=== PATIENT | male | born 1965 | race American Indian/Alaskan Native ===

== ENCOUNTER 2017-07-15 10:22 | Emergency (ER) | payer BC ==
--- NOTE | 2017-07-15 10:32 | EDM.PDOC ---
ED HPI GENERAL MEDICAL PROBLEM - General Chief Complaint: General Stated Complaint: MOUTH PAIN Time Seen by Provider: 07/15/17 10:31 Source of Information: Reports: Patient History Limitations: Reports: No Limitations - History of Present Illness INITIAL COMMENTS - FREE TEXT/NARRATIVE: Patient has been having pain and swelling to his lower left tooth the last 2 days. He did see the dentist this morning and he states that the dentist will not pull the tooth because it is infected. He denies any fever, chills over the last few days. Pain rated a 10/10. Discomfort with chewing, sensitive to hot and cold. Onset: Gradual Quality: Reports: Ache, Sharp Severity: Moderate Worsens with: Reports: Eating Left Lower Tooth/Teeth Pain Score (Numeric/FACES): 10 - Related Data Allergies Allergy/AdvReac Type Severity Reaction Status Date / Time niacin Allergy Itching Verified 07/15/17 11:07 Home Meds: Home Meds . [Unable to Verify Home Med List] 07/15/17 [History] ED ROS GENERAL - Review of Systems Review Of Systems: See Below Constitutional: Reports: No Symptoms HEENT: Reports: Other (left lower tooth pain) Respiratory: Reports: No Symptoms Cardiovascular: Reports: No Symptoms Endocrine: Reports: No Symptoms GI/Abdominal: Reports: No Symptoms : Reports: No Symptoms Musculoskeletal: Reports: No Symptoms Skin: Reports: No Symptoms Neurological: Reports: No Symptoms Psychiatric: Reports: No Symptoms Hematologic/Lymphatic: Reports: No Symptoms Immunologic: Reports: No Symptoms ED EXAM, GENERAL - Physical Exam Exam: See Below Exam Limited By: No Limitations General Appearance: Alert, WD/WN, Mild Distress Eye Exam: Bilateral Eye: EOMI, PERRL Throat/Mouth: Other (many teeth in various states of decay. Left lower molar has cracking, swelling is observed, as well as pain with palpation). No: Normal Teeth Head: Atraumatic, Facial Swelling Neck: Normal Inspection, Supple, Non-Tender, Full Range of Motion Respiratory/Chest: No Respiratory Distress Cardiovascular: Normal Peripheral Pulses, Regular Rate, Rhythm, No Edema Neurological: Alert, Oriented, CN II-XII Intact, Normal Cognition Psychiatric: Normal Affect, Normal Mood Skin Exam: Warm, Dry Lymphatic: No Adenopathy Course - Vital Signs Last Recorded V/S: Last Vital Signs Temp 36.1 C 07/15/17 10:25 Pulse 63 07/15/17 10:25 Resp 20 07/15/17 10:25 BP 130/78 07/15/17 10:25 Pulse Ox - Orders/Labs/Meds Meds: Medications Discontinued Medications Generic Name Dose Route Start Last Admin Trade Name Victorino PRN Reason Stop Dose Admin Hydrocodone Bitart/Acetaminophen 1 tab 07/15/17 10:57 07/15/17 11:25 [place] 325-10 Mg PO 07/15/17 10:58 1 tab ONETIME ONE Administration Ceftriaxone Sodium 2 gm/ 0 gm 07/15/17 10:56 07/15/17 11:24 Lidocaine HCl 4.2 ml IM 07/15/17 10:57 2 inj ONETIME ONE Administration - Re-Assessments/Exams Free Text/Narrative Re-Assessment/Exam: 07/15/17 11:37 Education offered to Mina regarding pain medication. I did not inject with lidocaine as I would usually because of the infection. Departure - Departure Time of Disposition: 11:39 Disposition: Home, Self-Care 01 Condition: Good Clinical Impression: Infected tooth - Discharge Information Instructions: Dental Abscess Forms: ED Department Discharge Additional Instructions: Please take your antibiotics until they are gone. You may have some injection site redness. Use ice on your mouth/jaw for swelling control If your infection does not appear to be getting better, please see a primary care provider or your dentist. I have given you a prescription for Augmentin and Hydrocodone. Please see primary care for further pain management if needed Please call with any questions or concerns - Problem List & Annotations (1) Infected tooth SNOMED Code(s): 797105490 Code(s): K04.7 - PERIAPICAL ABSCESS WITHOUT SINUS Status: Acute Priority : Low Current Visit: Yes - Problem List Review Problem List Initiated/Reviewed/Updated: Yes - Assessment/Plan Assessment:: tooth abscess Plan: Please take your antibiotics until they are gone. You may have some injection site redness. Use ice on your mouth/jaw for swelling control If your infection does not appear to be getting better, please see a primary care provider or your dentist. I have given you a prescription for Augmentin and Hydrocodone. Please see primary care for further pain management if needed Please call with any questions or concerns
[2017-07-15] MEDS ORDERED: cefTRIAXone 2 GM, Lidocaine 1% 4.2 ML IM ONE ×2 (10:56)
[2017-07-15] MEDS ORDERED: Acetaminophen/HYDROcodone 325-10 MG Tab PO ONE (10:57)
== END 2017-07-15 11:40 | disposition home or self-care (01) ==
LOC: VM.ED 10:22
DX: K04.7 Periapical abscess without sinus (principal); Z88.8 Allergy status to other drugs, medicaments and biological substances
CPT/HCPCS: 96372; 99282; A9270; J0696